=== PATIENT | male | born 1990 | race Caucasian/White ===

== ENCOUNTER 2018-01-31 20:12 | Emergency (ER) | payer OTHER ==
[2018-01-31] MEDS ORDERED: IBUPROFEN 600 MG TAB PO ONE (20:50)
[2018-01-31] MEDS ORDERED: OXYCODONE/APAP 5/325 TAB PO ONE (20:51)
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
[2018-01-31 21:54] VITALS: BP 136/93
== END 2018-01-31 21:49 | disposition home or self-care (01) ==
PROC: 2W29X4Z Dressing of Left Upper Extremity using Bandage (ICD-10-PCS; principal; 2018-01-31)
DX: T23.072A Burn of unspecified degree of left wrist, initial encounter (principal); F17.200 Nicotine dependence, unspecified, uncomplicated; X10.1XXA Contact with hot food, initial encounter; Y93.G3 Activity, cooking and baking; Y92.9 Unspecified place or not applicable; Y99.9 Unspecified external cause status
CPT/HCPCS: L3984